=== PATIENT | female | born 1990 | race Caucasian/White ===

== ENCOUNTER → 2018-05-04 | Outpatient (REF) | payer OTHER ==
[2018-05-05 14:28] LABS: CHLAMYDIA DNA AMPLIFICATION NEGATIVE (NEGATIVE); GC DNA AMPLIFICATION NEGATIVE (NEGATIVE)
== END ==
LOC: M SFHCLERA 17:13
PROVIDERS: ATTEND Nurse Practitioner Family
DX: N89.8 Other specified noninflammatory disorders of vagina (principal)

== ENCOUNTER → 2018-09-03 | Outpatient (REF) | payer OTHER ==
[2018-09-03 22:36] LABS: CHLAMYDIA DNA AMPLIFICATION POSITIVE (NEGATIVE); GC DNA AMPLIFICATION NEGATIVE (NEGATIVE)
== END ==
LOC: M SFHCLERA 17:53
PROVIDERS: ATTEND Physician Assistant
DX: N30.01 Acute cystitis with hematuria (principal); R30.0 Dysuria

== ENCOUNTER → 2019-02-25 | Outpatient (CLI) | payer OTHER | LOC: M LRY 16:38 | PROVIDERS: ATTEND Physician Assistant | DX: Z53.9 Procedure and treatment not carried out, unspecified reason (principal) ==

== ENCOUNTER → 2019-02-25 | Outpatient (REF) | payer OTHER ==
[2019-02-25 23:40] LABS: CHLAMYDIA DNA AMPLIFICATION NEGATIVE (NEGATIVE); GC DNA AMPLIFICATION NEGATIVE (NEGATIVE)
== END ==
LOC: M SFHCLERA 17:13
PROVIDERS: ATTEND Physician Assistant
DX: R30.0 Dysuria (principal)
CPT/HCPCS: 81002; 87086; 87661; G0463

== ENCOUNTER 2019-07-11 15:51 | Emergency (ER) | payer OTHER ==
[~2019-07-11] VITALS: Ht 165.1 cm; Wt 106.8 kg
[2019-07-11] MEDS ORDERED: VYVA70CA3 (16:01)
[2019-07-11] MEDS ORDERED: VIIB40TA (16:01)
[2019-07-11 17:37] VITALS: BP 112/59
== END 2019-07-11 17:37 | disposition home or self-care (01) ==
LOC: M ED 15:51
DX: O9A.213 Injury, poisoning and certain other consequences of external causes complicating pregnancy, third trimester (principal); S61.203A Unspecified open wound of left middle finger without damage to nail, initial encounter; W26.0XXA Contact with knife, initial encounter; Y92.89 Other specified places as the place of occurrence of the external cause; Z88.8 Allergy status to other drugs, medicaments and biological substances; Z91.048 Other nonmedicinal substance allergy status; Z79.899 Other long term (current) drug therapy; Z3A.36 36 weeks gestation of pregnancy

== ENCOUNTER 2019-08-15 14:10 | Inpatient (IN) | payer OTHER ==
[2019-08-15] VITALS (10 sets, daily range): BP systolic 135–178; BP diastolic 78–106
[~2019-08-15] VITALS: Ht 165.1 cm; Wt 112.7 kg
[~2019-08-15 14:10] MED LIST: VIIB40TA; VYVA70CA3 PO
[2019-08-15] MEDS ORDERED: PREN29TA4 PO (14:47)
[2019-08-15] MEDS ORDERED: ACET-683 PO (14:47)
[2019-08-15] MEDS ORDERED: TUMS750C5 PO (14:47)
[2019-08-15] MEDS ORDERED: ASPI81TA85 PO (14:47)
[2019-08-15] MEDS ORDERED: VALT500T PO (15:43)
[2019-08-15] MEDS ORDERED: VYVA40CA3 PO (15:44)
[2019-08-15] MEDS ORDERED: LR 1,000 ML IV SCH (15:44)
[2019-08-15] MEDS ORDERED: miSOPROStol 50 MCG 1/2 TAB (S0191) SL ONE (15:45)
[2019-08-15] MEDS ORDERED: PROTPAK PO (15:47)
[2019-08-15] MEDS ORDERED: PENICILLIN G POTASSIUM IV 5 MU in D5W MINI-BAG PLUS 100 ML IV STA (15:50)
[2019-08-15 16:15] LABS: HEMATOCRIT 33.9 % (36.0-47.0); HEMOGLOBIN 11.6 g/dl (12.0-15.5); MEAN CORPUSCULAR HEMOGLOBIN 29.7 pg (27.0-33.0); MEAN CORPUSCULAR HGB CONC 34.2 g/dl (32.0-36.5); MEAN CORPUSCULAR VOLUME 86.9 fl (80.0-96.0); PLATELET COUNT, AUTOMATED 242 10^3/uL (150-450); WHITE BLOOD COUNT 7.1 10^3/uL (4.0-10.0)
[2019-08-15 16:39] LABS: ALT/SGPT 19 U/L (12-78); BILIRUBIN,TOTAL 0.2 MG/DL (0.2-1.0); CREATININE FOR GFR 0.61 MG/DL (0.55-1.30); GLOMERULAR FILTRATION RATE > 60.0 (>60); LDH LACTATE DEHYDROGENASE 142 U/L (84-246); URIC ACID 4.4 MG/DL (2.6-6.0)
[2019-08-15 17:15] LABS: CREATININE,RANDOM URINE 38.7 MG/DL; TOTAL PROTEIN,RANDOM URINE 19.3 MG/DL (0.0-12.0)
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
[2019-08-15] MEDS ORDERED: PENICILLIN G POTASSIUM IV 2.5 MU in IV 1 EA IV SCH (20:00)
[2019-08-15] MEDS ORDERED: **PENDING PCN ENTRY XX SCH (21:00)
[2019-08-15] MEDS ORDERED: miSOPROStol 50 MCG 1/2 TAB (S0191) PO ONE (21:45)
[2019-08-16] VITALS (27 sets, daily range): BP systolic 124–186; BP diastolic 68–105
--- NOTE | 2019-08-16 07:13 | IPN ---
DATE: 08/16/2019 This lady was admitted at 37 weeks of gestation for history of hypertension, progressive chronic for induction of labor. She initially had one sublingual Cytotec 50 mg. She did have some contractions with that but not effectively enough to put her into labor. She did have a second dose and she had expressed interest in medication for sleep. We did order Stadol and Phenergan 3 hours ago, and she is still considering taking it or not. Her contractions have petered off with the second dose of Cytotec. Her blood pressures have been stable. At 2300 hours, it was 135/78. Temperature 97.8. She has had no severe range blood pressures the highest being 148/89. Her lab work had come back as normal. Chemistry was in normal limits. Uric acid was 4.4 and protein creatinine ratio is 0.49. She denies any headache, right upper quadrant pain, visual disturbances or edema. Our plan is to hopefully add one more Cytotec in 4 hours' time. If she does not kick into labor, if there is no cervical change, we would start some Pitocin and when available attempt to use a Snyder bulb. The patient expressed understanding of plan of care.
[2019-08-16] MEDS ORDERED: SIMETHICONE 80 MG CHEW TAB PO PRN (09:15)
[2019-08-16] MEDS ORDERED: diphenhydrAMINE 25 MG CAP PO PRN (09:15)
[2019-08-16] MEDS ORDERED: BUTORPHANOL 2 MG/ML INJ (J0595) IV PRN (09:15)
[2019-08-16] MEDS ORDERED: ACETAMINOPHEN 500 MG TAB PO PRN ×2 (09:15→17:00)
[2019-08-16] MEDS ORDERED: miSOPROStol 25 MCG 1/4 TAB (S0191) PO PRN (09:15)
[2019-08-16] MEDS ORDERED: CALCIUM CARBONATE 500 MG CHEW U/D PO PRN (09:15)
[2019-08-16] MEDS ORDERED: MOM 30ML SUSPENSION UDC PO PRN (09:15)
[2019-08-16] MEDS ORDERED: PROMETHAZINE INJ 25 MG/ML VIAL (J2550) IV PRN (09:15)
[2019-08-16] MEDS ORDERED: diphenhydrAMINE 12.5MG/5ML ELIXIR UDC PO PRN (09:30)
[2019-08-16] MEDS: VILAZODONE 40 MG PO SCH (09:32)
[2019-08-16] MEDS: LISDEXAMFETAMINE 40 MG PO SCH (09:32)
[2019-08-16] MEDS: PANTOPRAZOLE 40MG TAB (PROTONIX) PO SCH ×2 (09:32→21:03)
[2019-08-16] MEDS ORDERED: OXYTOCIN 30 UNITS IN 0.9% NaCl 500ML IV BAG (J2590) As Ordered ONE (14:12)
--- NOTE | 2019-08-16 14:22 | IPNPDOC ---
Text Note Date of Service The patient was seen on 08/16/19. NOTE Called by nurse for rapid progression after 1 PO cytotec. Patient also had s tadol and phenergan. VS WNL except some BP 150s/90s GEN tired ABD nontender gravid SVE anterior lip, +3 FHT: category 1, 140s, reactive, no decels, ctx q4-6min A/P: Continue management for anterior lip. Patient desires epidural. Fetus reassuring VS,Octavianobone, I+O VS, Octavianobone, I+O Laboratory Tests 08/15/19 16:04 Vital Signs Date Time Temp Pulse Resp B/P (MAP) Pulse Ox O2 Delivery O2 Flow Rate FiO2 08/16/19 13:39 20 08/16/19 09:08 70 152/90 (110) 08/15/19 22:03 97.8 08/15/19 14:38 99 Room Air Sandy Paez MD Aug 16, 2019 14:22
[2019-08-16] MEDS ORDERED: PENICILLIN G POTASSIUM IV 5 MU in D5W MINI-BAG PLUS 100 ML IV STA (14:24)
[2019-08-16] MEDS ORDERED: FENTANYL 2MCG/ML ROPIVACAINE 0.2% IN 0.9% NACL 100ML IVBAG As Ordered ONE (14:36)
[2019-08-16] MEDS: FENTANYL/ROPIVACAINE/NACL BAG 100 ML EPIDURAL SCH (14:47)
[2019-08-16] MEDS ORDERED: EPIDURAL/PCA KEYS XX PRN (15:15)
[2019-08-16] MEDS ORDERED: ePHEDrine SULFATE 25 MG/5 ML(5MG/ML) SYRINGE IV PRN (15:15)
[2019-08-16] MEDS ORDERED: EPIDURAL COMMENT XX SCH (15:15)
[2019-08-16] MEDS ORDERED: NALOXONE INJ 0.4 MG/1 ML VIAL (J2310) IV PRN (15:15)
[2019-08-16] MEDS ORDERED: REFRIGERATOR IV KEYS XX PRN (15:15)
[2019-08-16] MEDS ORDERED: LACTATED RINGER'S 1000 ML IV PRN (15:15)
[2019-08-16] MEDS ORDERED: ONDANSETRON 4MG/2ML VIAL (J2405) IV PRN ×2 (15:15→17:00)
[2019-08-16] MEDS ORDERED: diphenhydrAMINE INJ 50MG/ML VIAL (J1200) IV PRN (15:15)
[2019-08-16] MEDS ORDERED: OXYTOCIN DRIP 30 UNITS in IV 1 EA IV SCH (16:50)
[2019-08-16] MEDS ORDERED: MEASLES,MUMPS,RUBELLA VACCINE INJ (MMR-II) (90707) SC SCH (17:00)
[2019-08-16] MEDS ORDERED: METHYLERGONOVINE MALEATE 0.2 MG TAB PO PRN (17:00)
[2019-08-16] MEDS ORDERED: RHOGAM 300 MCG (1500 IU) INJ (J2790) IM SCH (17:00)
[2019-08-16] MEDS ORDERED: DIBUCAINE 1% OINTMENT 30GM TOP PRN (17:00)
[2019-08-16] MEDS ORDERED: PENICILLIN G POTASSIUM IV 2.5 MU in IV 1 EA IV SCH (18:00)
--- NOTE | 2019-08-16 19:42 | DNPDOC ---
[facility] Delivery Note Delivery Note DATE OF DELIVERY: 08/16/2019 PREDELIVERY DIAGNOSIS: 37-2/7 weeks' gestation and labor. POST DELIVERY DIAGNOSIS: Delivered. PROCEDURE: Spontaneous vaginal delivery. GROUP WORKER: Dr. Paez ANESTHESIA: Epidural. ESTIMATED BLOOD LOSS: 250 mL. FINDINGS: 5 pound 7 ounce 2460gm girl infant, Score 9/9, nuchal cord times 0. DELIVERY SUMMARY: Patient is a 29-year-old 1 now para 1 who was admitted to labor and delivery for IOL and had active labor for 2.5hours. Patient SROM clear around 1408. Baby girl head was delivered without difficulty over intact perineum in CLINT position at 1620. The nose and mouth were bulb suctioned. No nuchal cord was noted. The shoulders were then delivered without difficulty. Cord was then clamped x2 and cut after pulsation. Infant was handed on mother's belly. Pitocin bolus was started. Perineum and vagina was inspected and found to have a left vaginal introital laceration. This was repaired with 3-0 chromic. The placenta was then delivered at 1628 spontaneously intact. Cord had a 3 vessel cord. EBL was 250mL. The vagina and perineum were reinspected and no further lacerations were found and hemostasis was good. Fundus was firm. Patient tolerated delivery well. Sandy Paez MD Aug 16, 2019 19:42
[2019-08-16] MEDS ORDERED: DOCUSATE SODIUM 100 MG CAP PO SCH (21:00)
[2019-08-17] MEDS: FENTANYL/ROPIVACAINE/NACL BAG 100 ML EPIDURAL SCH (01:15)
[2019-08-17 06:00] VITALS: BP 130/75
[2019-08-17] MEDS: IBUPROFEN 800 MG TAB PO PRN ×2 (06:04→16:02)
[2019-08-17] MEDS: LISDEXAMFETAMINE 40 MG PO SCH (08:39)
[2019-08-17] MEDS: VILAZODONE 40 MG PO SCH (08:39)
[2019-08-17] MEDS: PANTOPRAZOLE 40MG TAB (PROTONIX) PO SCH ×2 (08:40→20:50)
--- NOTE | 2019-08-17 09:15 | IPNPDOC ---
Progress Note Date of Service: Aug 17, 2019 Day#: 1 Progress Note SUBJECT: Patient is a 29-year-old 1 now Para 1 status post uncomplicated spontaneous vaginal delivery with post vaginal laceration and repair, doing well day # 1. She has been ambulating, voiding spontaneously without issue and tolerating regular diet. Breast feeding without issue. Reports lochia is like a normal period. Patient is ambulating well. Reports some cramping with . Denies any pain. OBJECTIVE: VITAL SIGNS: Within normal limits, afebrile. Alert and oriented times three. Breast without erythema or masses. Breath sounds clear to auscultation. Heart rate: Regular rate and rhythm, no murmurs, rubs or gallops. Abdomen: Fundus firm at U-2. Soft, NTTP. Perineum intact and Minimal lochia. BLE without edema or tenderness ASSESSMENT: Patient is a 29-year-old 1 now Para 1 status post uncompli cated spontaneous vaginal delivery with post vaginal laceration and repair, doing well day # 1. Vitals within normal limits, afebrile, hemodynamically stable with no evidence of infection. PLAN: 1. Continue care. 2. Tylenol for pain. 3. Encourage breast feeding and ambulation. 4. Routine PP visit in 6 weeks in clinic. 5. Discussed return precautions at length. VS, I&O, 24H, Fishbone Vital Signs/I&O Vital Signs Date Time Temp Pulse Resp B/P (MAP) Pulse Ox O2 Delivery O2 Flow Rate FiO2 08/16/19 17:57 72 18 150/68 (95) 08/16/19 14:32 97.2 08/15/19 14:38 99 Room Air Sandy Paez MD Aug 16, 2019 19:47
[2019-08-17] MEDS ORDERED: DIBU10OI TOP (09:21)
[2019-08-17] MEDS: PRENATAL VITAMINS CHEWABLE TABLET PO SCH (09:28)
[2019-08-17] MEDS: SENNA 8.6 MG TAB (SENOKOT) PO SCH ×2 (11:15→20:50)
[2019-08-17 18:00] VITALS: BP 141/87
[2019-08-18 06:00] VITALS: BP 142/65
--- NOTE | 2019-08-18 06:41 | IPNPDOC ---
Progress Note Date of Service: Aug 18, 2019 Day#: 2 Progress Note SUBJECT: Patient is a 29-year-old 1 now Para 1 status post uncomplicated spontaneous vaginal delivery with post vaginal laceration and repair, doing well day # 2. She has been ambulating, voiding spontaneously without issue and tolerating regular diet. Breast feeding without issue. Reports lochia is like a normal period. Patient is ambulating well. Reports some cramping with . Denies any pain. OBJECTIVE: VITAL SIGNS: Within normal limits, afebrile. Alert and oriented times three. Breast without erythema or masses. Breath sounds clear to auscultation. Heart rate: Regular rate and rhythm, no murmurs, rubs or gallops. Abdomen: Fundus firm at U-2. Soft, NTTP. Perineum intact and Minimal lochia. BLE without edema or tenderness ASSESSMENT: Patient is a 29-year-old 1 now Para 1 status post uncompli cated spontaneous vaginal delivery with post vaginal laceration and repair, doing well day # 2. Vitals within normal limits, afebrile, hemodynamically stable with no evidence of infection. PLAN: 1. Discharge home. 2. Tylenol for pain. 3. Encourage breast feeding and ambulation. 4. Routine PP visit in 6 weeks in clinic. 5. Discussed return precautions at length. VS, I&O, 24H, Fishbone Vital Signs/I&O Vital Signs Date Time Temp Pulse Resp B/P (MAP) Pulse Ox O2 Delivery O2 Flow Rate FiO2 08/17/19 06:00 98.4 81 17 130/75 (93) 98 Room Air I&O- Last 24 Hours up to 6 AM 08/17/19 06:00 Intake Total 1565.8 ml Output Total 850 ml Balance 715.8 ml Sandy Paez MD Aug 17, 2019 09:18
--- NOTE | 2019-08-18 06:42 | DS.PDOC ---
Discharge Summary General Date of Admission Aug 15, 2019 at 14:10 Date of Discharge 08/18/2019 Discharge Summary PROCEDURES PERFORMED DURING STAY: None. ADMITTING DIAGNOSES: 1. at 37 weeks 2. PIH DISCHARGE DIAGNOSES: 1. at 37 weeks 2. PIH COMPLICATIONS/CHIEF COMPLAINT: Induction for PIH. HISTORY OF PRESENT ILLNESS: see H&P HOSPITAL COURSE: Patient had IOL with uncomplicated . Bleeding like menses. Tolerating diet. Passing flatus. Able to ambulate. Pain tolerable with pain medications. Urinating without difficulty. DISCHARGE MEDICATIONS: Please see below. ALLERGIES: Please see below. PHYSICAL EXAMINATION ON DISCHARGE: VITAL SIGNS: Please see below. GENERAL: No acute distress HEENT: MMM BREAST: Nontender, no erythema CARDIOVASCULAR EXAMINATION: RRR RESPIRATORY EXAMINATION: Bilaterally clear ABDOMINAL EXAMINATION: Soft, appropriate tenderness, nondistended, fundus -2 EXTREMITIES: no edema, nontender LABORATORY DATA: Please see below. IMAGING: none PROGNOSIS: Good ACTIVITY: Pelvic rest. DIET: Regular DISCHARGE PLAN: Home DISPOSITION: . DISCHARGE INSTRUCTIONS: 1. See attached. ITEMS TO FOLLOWUP ON ON OUTPATIENT: 1. 6wks in clinic. DISCHARGE CONDITION: Stable. TIME SPENT ON DISCHARGE: Greater than 10 minutes. Vital Signs/I&Os Vital Signs Date Time Temp Pulse Resp B/P (MAP) Pulse Ox O2 Delivery O2 Flow Rate FiO2 08/17/19 06:00 98.4 81 17 130/75 (93) 98 Room Air I&O- Last 24 Hours up to 6 AM 08/17/19 06:00 Intake Total 1565.8 ml Output Total 850 ml Balance 715.8 ml Discharge Medications Scheduled Aspirin (Aspir 81) 81 Mg Tablet.dr, 81 MG PO DAILY, (Reported) Calcium Carbonate (Tums) 300 Mg Tab.chew, 2 TAB PO BID, (Reported) Lisdexamfetamine Dimesylate (Vyvanse) 40 Mg Capsule, 40 MG PO QAM, (Reported) Pantoprazole Sodium (Protonix) 40 Mg Granpkt.dr, 40 MG PO DAILY, (Reported) Prenat 115/Iron Fum/Folic/Dss ( 19 Tablet) 1 Each Tablet, 1 TAB PO DAILY, (Reported) Valacyclovir HCl (Valtrex) 500 Mg Tablet, 500 MG PO BID, (Reported) Scheduled PRN Acetaminophen (Acetaminophen) 500 Mg Tablet, 1,000 MG PO Q6H PRN for PAIN, (Reported) Dibucaine (Dibucaine) 28 Gm Oint...g., 0 DOSE TOP Q4HP PRN for PAIN Miscellaneous Medications Vilazodone HCl (Viibryd) 40 Mg Tablet, (Reported) Allergies Coded Allergies: bupropion (Verified Allergy, Mild, swelling, 08/15/19) fluticasone (Verified Allergy, Mild, lip swell, 08/15/19) red dye (Verified Allergy, Mild, hives, 08/15/19) occasional occurance Sandy Paez MD Aug 17, 2019 09:20
[2019-08-18] MEDS: LISDEXAMFETAMINE 40 MG PO SCH ×2 (09:00→09:58)
[2019-08-18] MEDS: SENNA 8.6 MG TAB (SENOKOT) PO SCH (09:58)
[2019-08-18] MEDS: PRENATAL VITAMINS CHEWABLE TABLET PO SCH (09:58)
[2019-08-18] MEDS: PANTOPRAZOLE 40MG TAB (PROTONIX) PO SCH (09:58)
[2019-08-18] MEDS: VILAZODONE 40 MG PO SCH (10:02)
== END 2019-08-18 15:35 | disposition home or self-care (01) | DRG 807 ==
LOC: M LDI 14:10 → M OBS 08-16 19:03
PROVIDERS: ADMIT Obstetrics & Gynecology; ATTEND Obstetrics & Gynecology
PROC: 3E0P7GC Introduction of Other Therapeutic Substance into Female Reproductive, Via Natural or Artificial Opening (ICD-10-PCS; 2019-08-15)
PROC: 10E0XZZ Delivery of Products of Conception, External Approach (ICD-10-PCS; principal; 2019-08-16)
PROC: 0HQ9XZZ Repair Perineum Skin, External Approach (ICD-10-PCS; 2019-08-16)
DX: O13.4 Gestational [pregnancy-induced] hypertension without significant proteinuria, complicating childbirth (principal); Z37.0 Single live birth; Z3A.37 37 weeks gestation of pregnancy; O99.344 Other mental disorders complicating childbirth; F32.9 Major depressive disorder, single episode, unspecified; F90.9 Attention-deficit hyperactivity disorder, unspecified type; O99.824 Streptococcus B carrier state complicating childbirth; O70.0 First degree perineal laceration during delivery